=== PATIENT | female | born 1960 | race Two or more races ===

== ENCOUNTER → 2023-11-22 | Outpatient (CLI) | payer OTHER ==
[~2023-11-22] VITALS: Ht 167.6 cm; Wt 73.9 kg
[2023-11-22 11:42] LABS: HEMATOCRIT 43.8 % (36.0-45.00); HEMOGLOBIN 14.3 g/dL (12.0-15.00); MEAN CELL VOLUME 84.5 fL (80.00-100.00); MEAN CORPUSCULAR HEMOGLOBIN 27.5 pg (27.00-32.0); MEAN CORPUSCULAR HGB CONC 32.6 g/dl (32.0-36.0); PLATELET COUNT 198 K/uL (150-450); RED BLOOD COUNT 5.19 M/uL (4.00-6.00)
[2023-11-22 11:43] LABS: PH,URINE 5.5 (5.0-8.0); URINE APPEARANCE Clear; URINE BILIRRUBIN Negative (NEGATIVE); URINE BLOOD Negative; URINE COLOR Yellow; URINE GLUCOSE Negative (NEGATIVE); URINE LEUKOCYTE Negative; URINE NITRATE Negative; URINE PROTEIN Negative (NEGATIVE); URINE UROBILINOGEN 0.2 E.U./dl
[2023-11-22 11:47] LABS: URINE BACTERIA 6.2 uL (0.0-1933)
[2023-11-22 11:59] LABS: URINE EPITHELIAL CELLS 0.7 uL (0.0-38.8); URINE RBC 1.8 uL (0.0-20.8); URINE WBC 1.2 uL (0.0-23.2)
[2023-11-22 12:08] LABS: INR 1.01; PARTIAL THROMBOPLASTIN TIME 27.9 SECONDS (22.0-34.0); PROTHROMBIN TIME 10.6 SECONDS (9.0-11.5)
[2023-11-22 12:23] LABS: ALBUMIN 4.1 gm/dL (3.4-5.0); BILIRUBIN TOTAL 0.68 mg/dL (0.3-1.2); CALCIUM 9.2 mg/dL (8.5-10.1); CREATININE SERUM 0.62 mg/dL (0.55-1.02); GFR 96.6; GLOBULINA 3.8 G/DL (2.4-3.5); POTASSIUM 3.84 mEq/L (3.5-5.1); TOTAL PROTEIN 7.9 gm/dL (6.4-8.2)
== END | disposition home or self-care (01) ==
LOC: RAD 08:00 → ADM 08:45 → EDSTATUS 08:45 → OB/GYN 11-29 08:45
PROVIDERS: ATTEND Obstetrics & Gynecology Gynecologic Oncology
DX: C54.1 Malignant neoplasm of endometrium (principal); Z01.818 Encounter for other preprocedural examination; Z20.822 Contact with and (suspected) exposure to COVID-19; R79.81 Abnormal blood-gas level; D64.9 Anemia, unspecified; N39.0 Urinary tract infection, site not specified; Z15.02 Genetic susceptibility to malignant neoplasm of ovary

== ENCOUNTER 2024-11-05 08:45 | Inpatient (IN) | payer OTHER ==
[~2024-11-05] VITALS: Ht 167.6 cm; Wt 76.2 kg
[2024-11-05 12:41] LABS: PH,URINE 5.5 (5.0-8.0); URINE APPEARANCE Clear; URINE BILIRRUBIN Negative (NEGATIVE); URINE BLOOD Negative; URINE COLOR Yellow; URINE GLUCOSE Negative (NEGATIVE); URINE KETONE Negative (NEGATIVE); URINE LEUKOCYTE Negative; URINE NITRATE Negative; URINE PROTEIN Negative (NEGATIVE); URINE UROBILINOGEN 0.2 E.U./dl
[2024-11-05 12:47] LABS: URINE BACTERIA 25.7 uL (0.0-1933); URINE EPITHELIAL CELLS 2.3 uL (0.0-38.8); URINE RBC 6.7 uL (0.0-20.8); URINE WBC 1.8 uL (0.0-23.2)
[2024-11-05 12:50] LABS: HEMATOCRIT 44.7 % (36.0-45.00); HEMOGLOBIN 14.4 g/dL (12.0-15.00); MEAN CELL VOLUME 85.5 fL (80.00-100.00); MEAN CORPUSCULAR HEMOGLOBIN 27.7 pg (27.00-32.0); MEAN CORPUSCULAR HGB CONC 32.3 g/dl (32.0-36.0); PLATELET COUNT 198 K/uL (150-450); RED BLOOD COUNT 5.22 M/uL (4.00-6.00); RED CELL DISTRIBUTION WIDTH 13.7 % (11.5-14.5)
[2024-11-05 13:18] LABS: INR 1.05; PARTIAL THROMBOPLASTIN TIME 27.7 SECONDS (22.0-34.0); PROTHROMBIN TIME 11.4 SECONDS (9.0-11.5)
[2024-11-05 13:33] LABS: BILIRUBIN TOTAL 0.88 mg/dL (0.3-1.2); CALCIUM 9.4 mg/dL (8.5-10.1); CREATININE SERUM 0.64 mg/dL (0.55-1.02); GFR 92.84; GLOBULINA 3.9 G/DL (2.4-3.5); POTASSIUM 3.86 mEq/L (3.5-5.1); TOTAL PROTEIN 7.9 gm/dL (6.4-8.2)
[2024-11-05 13:48] VITALS: BP 113/64
[2024-11-05 13:56] VITALS: BP 126/75
[2024-11-05 14:21] LABS: RH POSITIVE
[2024-11-13] MEDS ORDERED: HEMOSTATIC MATRIX 1 KIT KIT TOP ONE (09:06)
[2024-11-13] MEDS ORDERED: SURGIFLO APPLICATOR 1 EACH APPL TOP ONE (09:09)
[2024-11-13] MEDS ORDERED: RINGERS SOLUTION,LACTATED 1,000 ML IV SCH (09:15)
[2024-11-13] MEDS ORDERED: MORPHINE SULFATE 4 MG/ML CARTRIDGE IV PRN (09:15)
[2024-11-13] MEDS ORDERED: SUGAMMADEX SODIUM 200 MG/2 ML VIAL IV ONE (09:29)
[2024-11-13] MEDS ORDERED: MORPHINE SULFATE 4 MG/ML VIAL IV ONE ×2 (10:50→11:25)
[2024-11-13] MEDS ORDERED: METRONIDAZOLE/SODIUM CHLORIDE 500 MG/100 ML PIGGYBACK IV ONE (11:00)
[2024-11-13] MEDS ORDERED: CEFAZOLIN SODIUM 1,000 MG VIAL IV ONE (11:00)
[2024-11-13] MEDS ORDERED: ACETAMINOPHEN 500 MG GEL..CAP PO SCH (12:00)
[2024-11-13 12:33] VITALS: BP 113/64
[2024-11-13] MEDS ORDERED: SIMETHICONE 125 MG CAPSULE PO SCH (13:00)
[2024-11-13 13:07] LABS: HEMATOCRIT 40.1 % (36.0-45.00); HEMOGLOBIN 13.1 g/dL (12.0-15.00); MEAN CELL VOLUME 86.6 fL (80.00-100.00); MEAN CORPUSCULAR HEMOGLOBIN 28.3 pg (27.00-32.0); MEAN CORPUSCULAR HGB CONC 32.6 g/dl (32.0-36.0); PLATELET COUNT 152 K/uL (150-450); RED BLOOD COUNT 4.64 M/uL (4.00-6.00); RED CELL DISTRIBUTION WIDTH 13.4 % (11.5-14.5)
[2024-11-13 14:09] LABS: ALBUMIN 3.4 gm/dL (3.4-5.0); CALCIUM 8.5 mg/dL (8.5-10.1); CREATININE SERUM 0.74 mg/dL (0.55-1.02); GFR 78.52; POTASSIUM 3.84 mEq/L (3.5-5.1)
[2024-11-13 16:00] VITALS: BP 113/65; O2SAT 99
[2024-11-13] MEDS ORDERED: CEFAZOLIN SODIUM 1,000 MG VIAL IV SCH (17:00)
[2024-11-13] MEDS ORDERED: METOCLOPRAMIDE HCL 5 MG/ML VIAL IV SCH (17:00)
[2024-11-13] MEDS ORDERED: DOCUSATE SODIUM 100MG CAP PO SCH (21:00)
[2024-11-13] MEDS ORDERED: FAMOTIDINE/PF 20 MG/2 ML VIAL IV PUSH SCH (21:00)
[2024-11-13] MEDS ORDERED: GABAPENTIN 300 MG CAPSULE PO SCH (21:00)
[2024-11-13 23:11] LABS: HEMATOCRIT 34.7 % (36.0-45.00); HEMOGLOBIN 11.6 g/dL (12.0-15.00); MEAN CELL VOLUME 84.4 fL (80.00-100.00); MEAN CORPUSCULAR HEMOGLOBIN 28.3 pg (27.00-32.0); MEAN CORPUSCULAR HGB CONC 33.5 g/dl (32.0-36.0); PLATELET COUNT 145 K/uL (150-450); RED BLOOD COUNT 4.11 M/uL (4.00-6.00); RED CELL DISTRIBUTION WIDTH 13.4 % (11.5-14.5)
[2024-11-13 23:37] LABS: ALBUMIN 2.8 gm/dL (3.4-5.0); CREATININE SERUM 0.72 mg/dL (0.55-1.02); GFR 81.04; PHOSPHOROUS 3.6 mg/dL (2.5-4.9); POTASSIUM 3.73 mEq/L (3.5-5.1)
[2024-11-14] VITALS: BP 95/57; O2SAT 96
[2024-11-14 08:00] VITALS: BP 117/65
[2024-11-14] MEDS ORDERED: ENOXAPARIN SODIUM 40 MG/0.4 ML SYRINGE SUBCUTANEO SCH (09:00)
== END 2024-11-14 12:47 | disposition home or self-care (01) | DRG 741 ==
LOC: OB/GYN 11-13 05:45 → O/R 11-13 05:45 → SURH 11-13 08:45 → OB/GYN 11-13 11:46 → SURH 11-13 16:30 → OB/GYN 11-14 12:47
PROVIDERS: Obstetrics & Gynecology; ADMIT Obstetrics & Gynecology Gynecologic Oncology; ATTEND Obstetrics & Gynecology Gynecologic Oncology
PROC: 0UT74ZZ Resection of Bilateral Fallopian Tubes, Percutaneous Endoscopic Approach (ICD-10-PCS; 2024-11-13)
PROC: 0UT24ZZ Resection of Bilateral Ovaries, Percutaneous Endoscopic Approach (ICD-10-PCS; 2024-11-13)
PROC: 07BC4ZZ Excision of Pelvis Lymphatic, Percutaneous Endoscopic Approach (ICD-10-PCS; 2024-11-13)
PROC: 8E0W4CZ Robotic Assisted Procedure of Trunk Region, Percutaneous Endoscopic Approach (ICD-10-PCS; 2024-11-13)
PROC: 0UT94ZZ Resection of Uterus, Percutaneous Endoscopic Approach (ICD-10-PCS; principal; 2024-11-13 16:30)
DX: C54.1 Malignant neoplasm of endometrium (principal)
CPT/HCPCS: 58548; S2900